=== PATIENT | female | born 1960 | race Caucasian/White ===

== ENCOUNTER 2019-01-12 10:47 | Emergency (ER) | payer BC ==
[~2019-01-12] VITALS: Ht 162.6 cm; Wt 66.7 kg
[~2019-01-12 10:47] MED LIST: ATEN-51 PO; CYAN500T46 PO; LORA0.5T PO; LOSA25TA12 PO; MAGN400T27 PO
[2019-01-12 10:58] VITALS: Ht 162.6 cm; Wt 66.7 kg
[2019-01-12] MEDS ORDERED: LORAZEPAM 0.5 MG TAB PO ONE (11:30)
[2019-01-12 13:29] VITALS: BP 163/80; PULSE 64; RESP 16
== END 2019-01-12 13:29 | disposition home or self-care (01) ==
LOC: E/R 10:47
DX: I10 Essential (primary) hypertension (principal)
CPT/HCPCS: 36415; 70450; 80048; 84484; 85025; 93005; Z7502; Z7610

== ENCOUNTER 2019-01-15 19:33 | Emergency (ER) | payer BC ==
[~2019-01-15] VITALS: Ht 162.6 cm; Wt 66.6 kg
[2019-01-15 19:37] VITALS: Ht 162.6 cm; Wt 66.6 kg
[2019-01-15] MEDS ORDERED: NICARDipine HCL 30 MG CAPSULE PO ONE (20:00)
[2019-01-15] MEDS ORDERED: LORAZEPAM 1 MG TAB PO ONE (20:00)
[2019-01-15 21:45] VITALS: BP 132/71; PULSE 69; RESP 20
== END 2019-01-15 21:47 | disposition home or self-care (01) ==
LOC: E/R 19:33
DX: I10 Essential (primary) hypertension (principal); F41.9 Anxiety disorder, unspecified
CPT/HCPCS: Z7502; Z7610; 99283